=== PATIENT | male | born 1985 | race Hispanic/Latino ===

== ENCOUNTER 2019-04-10 11:19 | Emergency (ER) | payer BC, OTHER | END 2019-04-10 11:42 | disposition home or self-care (01) | LOC: NAV ERS 11:19 | DX: S01.01XD Laceration without foreign body of scalp, subsequent encounter (principal); W22.8XXD Striking against or struck by other objects, subsequent encounter ==

== ENCOUNTER 2022-02-14 18:20 | Emergency (ER) | payer BC, SELFPAY ==
[2022-02-14] MEDS ORDERED: Fluorescein Opthalmic Strip ONE (18:50)
[2022-02-14] MEDS ORDERED: Tetracaine 0.5% PF 4 ML BOT ONE (18:50)
== END 2022-02-14 19:17 | disposition home or self-care (01) ==
LOC: NAV ERS 18:20
DX: T15.02XA Foreign body in cornea, left eye, initial encounter (principal)
CPT/HCPCS: 65220

== ENCOUNTER 2022-04-06 13:40 | Emergency (ER) | payer SELFPAY ==
[2022-04-06] MEDS ORDERED: predniSONE 20 MG TAB ONE (14:04)
== END 2022-04-06 14:12 | disposition home or self-care (01) ==
LOC: NAV ERS 13:40
DX: L29.9 Pruritus, unspecified (principal); T63.441A Toxic effect of venom of bees, accidental (unintentional), initial encounter
CPT/HCPCS: 99282; J7512

== ENCOUNTER 2023-11-01 22:10 | Emergency (ER) | payer SELFPAY | END 2023-11-01 23:28 | disposition home or self-care (01) | LOC: NAV ERS 22:10 | DX: S52.572A Other intraarticular fracture of lower end of left radius, initial encounter for closed fracture (principal); W01.0XXA Fall on same level from slipping, tripping and stumbling without subsequent striking against object, initial encounter; Y93.02 Activity, running | CPT/HCPCS: 29105 ==